=== PATIENT | male | born 1995 | race Two or more races ===

== ENCOUNTER 2022-01-05 21:16 | Emergency (ER) | payer OTHER ==
[~2022-01-05] VITALS: Ht 154.9 cm; Wt 117.9 kg
[2022-01-05] MEDS ORDERED: BENADRYL ALLERG25 MG PO (23:14)
== END 2022-01-06 01:38 | disposition home or self-care (01) ==
LOC: ER 21:16
DX: R42 Dizziness and giddiness (principal)